=== PATIENT | female | born 1980 | race Caucasian/White ===

== ENCOUNTER 2016-12-02 19:03 | Emergency (ER) | payer OTHER ==
--- NOTE | 2016-12-02 19:09 | ED Physician Chart ---
Chief Complaint/HPI - Patient Information Date Seen:: 12/02/16 Time Seen:: 19:09 Chief Complaint:: ear pain History of Present Illness:: 36-year-old female, otherwise healthy, complains of acute, constant, moderate, aching, 6 out of 10, right ear pain 2 days. Has associated tendinitis of the right ear and slight right-sided headache. Denies any hearing loss, acute vision changes, nausea, vomiting, chest pain, palpitations, trouble swallowing. Historian:: Patient Review:: Nurse's Note Reviewed Review of Systems - Review of Systems Other: Complete system review otherwise unremarkable except as noted in history of present illness. Past Medical History - Past Medical History Past Medical History: No significant medical hx Family History: None Social History: Non Smoker, No Alcohol, No Drug Use, Employed Surgical History: None Psychiatricy History: None Medication: None Family Medical History - Family Member Mother History Unknown: Yes Physical Exam - Physical Examination Other:: INITIAL VITAL SIGNS: Reviewed by me GENERAL: Alert and interactive. No acute distress HEAD: Head is normocephalic and atraumatic EYES: EOMI. PERRL. No scleral icterus. No conjunctival injection ENT: Moist mucous membranes. Right ear there is slight exudate and wax buildup on the upper surface. Consistent with mild otitis externa. NECK: Supple. No masses. Full range of motion RESPIRATORY: No tachypnea. Clear breath sounds bilaterally. No wheezing, rales, or rhonchi CV: Regular rate and rhythm. No murmurs, rubs, or gallops ABDOMEN: Soft, non-distended, non-tender. No guarding. No rebound. No masses. EXTREMITIES: No deformity. No cyanosis. No edema. SKIN: Warm and dry. No obvious rashes. NEUROLOGIC: Alert and oriented. Face is symmetric. Speech is normal. Moves all extremities equally. Motor and sensory distally intact. ED Septic Shock - . Is Septic Shock (SBP<90, OR Lactate>4 mmol\L) present?: No Reassessment (Disposition) - Reassessment Reassessment:: She has acute right-sided ear pain with associated tinnitus. Looks like she has underlying otitis externa. He was prescribed Cortisporin otic and ibuprofen. Gave ibuprofen here in the ER. Follow-up PCP 1-2 days. Return to ER precautions given. Patient understands and agrees with the plan. Reassessment Condition:: Improved - Diagnosis Diagnosis:: Acute right-sided otalgia with acute tendinitis due to acute otitis externa - Aftercare/Follow up Instructions Aftercare/Follow-Up Instructions:: Counseled pt regarding lab results/diagnosis & need follow up, Refer to Discharge Instructions Medication Prescribed:: Cortisporin otic Ibuprofen - Patient Disposition Discharge/Transfer:: Home Time:: 19:33 Condition at Disposition:: Improved ED Discharge Plan - Patient Disposition Admit/Discharge/Transfer: PT DISCHARGED HOME Condition at Disposition: Improved Instructions: Otitis Externa
== END 2016-12-02 19:50 | disposition home or self-care (01) ==
LOC: ER 19:03
DX: H60.91 Unspecified otitis externa, right ear (principal)
CPT/HCPCS: Z7502